=== PATIENT | male | born 1945 | race Caucasian/White ===

== ENCOUNTER 2017-04-26 08:23 | Day surgery (SDC) | payer MEDICARE, OTHER ==
[2017-04-25 08:51] VITALS: BMI 33.2
[~2017-04-26 08:23] MED LIST: LACTATED RINGERS 1,000 ML IV SCH; MOXIFLOXACIN HCL 0.5% DROPS 3 ML BTL OP ONE; ONDANSETRON 4 MG/2 ML VIAL IVP PRN; Pre Op ABX Message 1 EACH MISC MISCELLANE ONE; TETRACAINE 0.5% OPHTH (PF) DROPS 4 ML BTL OP ONE; TIMOLOL 0.5% OPHTH SOLN (PF) 0.2 ML DROPERETTE OP ONE
[2017-04-26] MEDS: PHENYLEPHRINE 2.5% OPHTH DRP 2ML OP NR ×3 (08:50→09:02)
[2017-04-26] MEDS: CYCLOPENTOLATE 1% OPHTH SOLN 2 ML BTL OP ONE ×3 (08:53→09:05)
[2017-04-26 09:13] LABS: Glucose,Whole Blood 178 mg/dL (75-99)
[2017-04-26 09:15] VITALS: TEMP 98.2
[2017-04-26] MEDS ORDERED: LIDOCAINE 1% 20 ML VIAL (10MG/ML) FOR IV START INTRADERMA ONE (09:20)
[2017-04-26] MEDS ORDERED: HYALURONATE SODIUM INTRAOCULAR 1 EACH SYRINGE (12MG/ML) INTRAOCULA ONE (09:38)
[2017-04-26] MEDS ORDERED: BALANCED SALT IRRIG SOLN COMB2 15 ML IRRIG.SOLN IRRIGATION ONE (09:38)
[2017-04-26] MEDS ORDERED: TIMOLOL 0.5% OPHTH SOLN (PF) 0.2 ML DROPERETTE LEFT EYE ONE (09:38)
[2017-04-26] MEDS ORDERED: MOXIFLOXACIN HCL 0.5% DROPS 3 ML BTL LEFT EYE ONE (09:39)
[2017-04-26] MEDS ORDERED: LIDOCAINE 1% (PF) 10MG/ML VIAL INTRAARTIC ONE (09:39)
[2017-04-26] MEDS ORDERED: MIDAZOLAM 2 MG/2 ML VIAL ONE (09:40)
[2017-04-26] MEDS ORDERED: EPINEPHrine (PF) 0.3 ML in BALANCED SALT IRRIG SOLN COMB2 500 ML IRRIGATION ONE (09:41)
--- NOTE | 2017-04-26 10:08 | P.OP ---
Date of Procedure: 04/26/17 Preoperative Diagnosis: NS & CS & PSC Postoperative Diagnosis: same w/ IFIS Procedure(s) Performed: PIOL OS, Malyugin ring insertion Implants: PCB00 21.00 Anesthesia: MAC Surgeon: Nima Reyez Estimated Blood Loss (ml): 0 Pathology: none sent Condition: stable Disposition: same day Indications for Procedure: blurry vision Operative Findings: no complications
[2017-04-26 10:33] VITALS: RESP 18
[2017-04-26 10:55] VITALS: BP 136/85; PULSE 65
--- NOTE | 2017-04-26 18:19 | OP ---
OPERATIVE REPORT DATE OF SURGERY: 26 April 2017. PROCEDURE: Phacoemulsification of cataract and intraocular lens implant of the left eye. PREOPERATIVE DIAGNOSES: Nuclear sclerosis, cortical sclerosis, posterior subcapsular cataract. POSTOPERATIVE DIAGNOSES: 1. Nuclear sclerosis. 2. Cortical sclerosis. 3. Posterior subcapsular cataract. 4. Intraoperative floppy iris. SURGEON: Dr. Nima Reyez. ANESTHESIA: Topical. ESTIMATED BLOOD LOSS: Is none. SPECIMEN: Taken none. NARRATIVE: After obtaining the appropriate consent, the patient was brought to the operating room. There he was placed under cardiac monitoring, prepped and draped in the usual sterile manner. He was approached from his left temporal side and at the 5 o'clock position a 1.1 mm stab blade was used to create a paracentesis port. Through this opening 1% Xylocaine MPF 50 50 mixed with balanced salt solution was injected into the anterior chamber. This was followed by stabilization of the anterior chamber with Amvisc. At the 3 o'clock position a 2.5 mm keratome was used to create a self-sealing corneal flap incision in Langerman's fashion. The patient's pupil was approximately only about 4.5 mm in diameter and the appearance of the tissue did not appear to be particularly firmly fixed within the eye. Therefore, a 7 mm Malyugin ring was placed and secured on the iris sphincter without difficulty. This was followed by beginning a continuous tear capsulorrhexis with a cystotome which was then completed using the Utrata forceps. Hydrodissection and hydrodelineation of the lens was accomplished with balanced salt solution. Phacoemulsification lens utilizing phaco chop was accomplished at 12.33 seconds at 10% power. Additional Xylocaine MPF was instilled into the anterior chamber. This was followed by removal of the remaining cortex under irrigation aspiration along with careful polishing of the posterior capsule in capsule vacuum mode. Additional Amvisc was then used to stabilize the capsular bag and an LOLA PCP 0 0 21.0 diopter posterior chamber intraocular lens was then injected into the capsular bag without difficulty. The 7 mm Malyugin ring was then disinserted from the iris sphincter and removed from the anterior chamber. Irrigation and aspiration on the viscoelastic within the anterior chamber and around the intra-ocular lens was accomplished without difficulty. The eye was then brought to normal intraocular pressure through the paracentesis port and the incisions were confirmed to be watertight. He then received 2 drops of 0.5% timolol followed by 2 drops of Vigamox was then lightly patched and shielded in the usual manner. There were no complications from the procedure. She tolerated the procedure well and returned to outpatient recovery in good condition. AFUA / LEROY: [id number] /
== END 2017-04-26 11:36 | disposition home or self-care (01) ==
LOC: OR 08:23
PROVIDERS: ATTEND Ophthalmology
DX: E11.36 Type 2 diabetes mellitus with diabetic cataract (principal); H25.12 Age-related nuclear cataract, left eye; H25.043 Posterior subcapsular polar age-related cataract, bilateral; H35.3132 Nonexudative age-related macular degeneration, bilateral, intermediate dry stage; H21.81 Floppy iris syndrome; H52.03 Hypermetropia, bilateral; H52.4 Presbyopia; I10 Essential (primary) hypertension; I48.91 Unspecified atrial fibrillation; Z79.01 Long term (current) use of anticoagulants; E07.9 Disorder of thyroid, unspecified; N40.0 Benign prostatic hyperplasia without lower urinary tract symptoms; Z79.84 Long term (current) use of oral hypoglycemic drugs; Z79.899 Other long term (current) drug therapy; Z88.1 Allergy status to other antibiotic agents; Z88.5 Allergy status to narcotic agent
CPT/HCPCS: 66984; C1780; J2250; J0171; J2001

== ENCOUNTER 2017-06-14 06:17 | Day surgery (SDC) | payer MEDICARE, OTHER ==
[~2017-06-14 06:17] MED LIST changes: -ONDANSETRON 4 MG/2 ML VIAL IVP PRN; -Pre Op ABX Message 1 EACH MISC MISCELLANE ONE; +TIMOLOL 0.5% OPHTH DROPS 5 ML BTL OP ONE; -TIMOLOL 0.5% OPHTH SOLN (PF) 0.2 ML DROPERETTE OP ONE
[2017-06-14 06:40] VITALS: RESP 16; TEMP 97.9
[2017-06-14] MEDS: CYCLOPENTOLATE 1% OPHTH SOLN 2 ML BTL OP ONE ×3 (06:47→07:01)
[2017-06-14] MEDS: PHENYLEPHRINE 2.5% OPHTH DRP 2ML OP NR ×3 (06:50→07:04)
[2017-06-14 06:56] LABS: Glucose,Whole Blood 151 mg/dL (75-99)
[2017-06-14] MEDS ORDERED: LIDOCAINE 1% INJ 10MG/ML (10 ML MDV) SQ ONE (07:17)
[2017-06-14] MEDS ORDERED: HYALURONATE SODIUM INTRAOCULAR 1 EACH SYRINGE (12MG/ML) INTRAOCULA ONE (07:19)
[2017-06-14] MEDS ORDERED: BALANCED SALT IRRIG SOLN COMB2 15 ML IRRIG.SOLN INTRAOCULA ONE (07:20)
[2017-06-14] MEDS ORDERED: LIDOCAINE 1% (PF) 10MG/ML VIAL SQ ONE (07:20)
[2017-06-14] MEDS ORDERED: fentaNYL (PF) 50 MCG/ML 2 ML AMP ONE (07:39)
[2017-06-14] MEDS ORDERED: MIDAZOLAM 2 MG/2 ML VIAL ONE (07:39)
[2017-06-14] MEDS ORDERED: EPINEPHrine (PF) 0.3 ML in BALANCED SALT IRRIG SOLN COMB2 500 ML IRRIGATION ONE (08:00)
--- NOTE | 2017-06-14 08:11 | P.OP ---
Date of Procedure: 06/14/17 Preoperative Diagnosis: NS & CS & PSC Postoperative Diagnosis: same Procedure(s) Performed: PIOL, OD Implants: PCB00 21.00 Anesthesia: MAC Surgeon: Nima Reyez Estimated Blood Loss (ml): 0 Pathology: none sent Condition: stable Disposition: same day Indications for Procedure: blurry vision Operative Findings: no complications
[2017-06-14 08:50] VITALS: BP 115/66; PULSE 57
--- NOTE | 2017-06-14 19:26 | OP ---
OPERATIVE REPORT DATE OF SURGERY: 06/14/2017 PROCEDURE: Phacoemulsification of cataract and intraocular lens implant of the right eye. PREOPERATIVE DIAGNOSIS: Nuclear sclerosis and cortical sclerosis. POSTOPERATIVE DIAGNOSIS: Subcapsular cataract. ESTIMATED BLOOD LOSS: Zero. SPECIMEN TAKEN: None. NARRATIVE: After obtaining the appropriate consent, the patient was brought to the Operating Room where the patient was placed under cardiac monitoring and prepped and draped in the usual sterile manner. At the 11 o'clock position a 15-degree super sharp blade was used to create a paracentesis followed by instillation of 1% Xylocaine MPF 50:50 mix with BSS into the anterior chamber. This was followed by to stabilize the anterior chamber. At the 9 o'clock position a self-sealing corneal flap incision was created using 2.8 mm isabel keratome. A cystotome was used to initiate a continuous tear capsulorrhexis which was completed with the Utrata forceps. A Binkhorst cannula was used to hydrodissect the lens nucleus followed by hydrodelineation. Phacoemulsification of the lens was performed utilizing phacochop in 14.02 seconds at 15% power. The remaining cortical material was removed using the irrigation aspiration mode followed by additional 1% Xylocaine MPF into the anterior chamber followed by viscoelastic Amvisc to stabilize the capsular bag. An LOLA PCB 00 21.0 diopters posterior chamber lens was placed into the capsular bag without difficulty. The remaining viscoelastic material was removed from the anterior chamber with the irrigation/aspiration. Balanced salt solution was used to normalize the intraocular pressure. The incision was checked for watertight integrity. The patient then received two drops of 0.5% timolol followed by two drops Vigamox, was lightly patched and shielded in the usual manner. There were no complications from the procedure. The patient tolerated the procedure well and was returned to recovery in good condition. MMODL / IJN: [id number] /
== END 2017-06-14 09:10 | disposition home or self-care (01) ==
LOC: OR 06:17
PROVIDERS: ATTEND Ophthalmology
DX: H25.041 Posterior subcapsular polar age-related cataract, right eye (principal); H35.3132 Nonexudative age-related macular degeneration, bilateral, intermediate dry stage; E11.319 Type 2 diabetes mellitus with unspecified diabetic retinopathy without macular edema; I12.9 Hypertensive chronic kidney disease with stage 1 through stage 4 chronic kidney disease, or unspecified chronic kidney disease; E11.22 Type 2 diabetes mellitus with diabetic chronic kidney disease; N18.9 Chronic kidney disease, unspecified; H52.03 Hypermetropia, bilateral; H52.4 Presbyopia; Z96.1 Presence of intraocular lens; I48.91 Unspecified atrial fibrillation; E07.9 Disorder of thyroid, unspecified; E78.5 Hyperlipidemia, unspecified; J30.2 Other seasonal allergic rhinitis; Z90.49 Acquired absence of other specified parts of digestive tract; Z90.79 Acquired absence of other genital organ(s); Z85.038 Personal history of other malignant neoplasm of large intestine; Z82.49 Family history of ischemic heart disease and other diseases of the circulatory system; Z79.01 Long term (current) use of anticoagulants; Z79.84 Long term (current) use of oral hypoglycemic drugs; Z79.890 Hormone replacement therapy; Z79.899 Other long term (current) drug therapy; Z88.1 Allergy status to other antibiotic agents; Z88.5 Allergy status to narcotic agent
CPT/HCPCS: 66984; C1780; J2250; J0171; J3010; J2001

== ENCOUNTER → 2018-09-11 | Outpatient (CLI) | payer MEDICARE, OTHER ==
--- NOTE | 2018-09-11 16:59 | US ---
EXAMINATION TYPE: US kidneys/renal and bladder DATE OF EXAM: 09/11/2018 COMPARISON: 12/09/2015 CLINICAL HISTORY: N18.2 Chronic kidney disease, stage 2 (mild). EXAM MEASUREMENTS: Right Kidney: 11.1 x 5.0 x 4.8 cm Left Kidney: 11.3 x 5.6 x 5.2 cm Right Kidney: No hydronephrosis or masses seen Left Kidney: probable stone again visualized 0.9 x 0.5 x 1.0cm, there is a new lower pole vascula r solid suspicious mass measuring 3.8 x 3.7 x 3.9 cm Bladder: wnl Bilateral Jets seen: Yes There is no evidence for hydronephrosis at this point in time. No right-sided nephrolithiasis is see n. Left renal calculus as described above. No right-sided masses are identified. Left renal mass as described above. The urinary bladder is anechoic. Bilateral ureteral jets are seen. IMPRESSION: 1. New left lower pole 3.7 cm renal mass that should be considered neoplasm until proven otherwise. T hree-phase abdominal CT is recommended for further evaluation. 2. Nonobstructing 1 cm left lower pole renal calculus. 3. Slightly lobulated Contour the kidneys is likely sequela of the patient's known medical renal dise ase. No cortical renal thinning or diminished cortical medullary differentiation. No hydronephrosis. A Yellow level critical message alert has been initiated for Veena Cordova MD via the [employer] Critical Results System on 09/11/2018 4:56 PM. This message alert has been sent to Veena Cordova MD via the preferences provided by the clinician for the receipt of Radiology Critical Findings. Message ID [id number].
== END ==
LOC: RADUSWWP 15:19
PROVIDERS: ATTEND Internal Medicine Nephrology
DX: N28.89 Other specified disorders of kidney and ureter (principal); N20.0 Calculus of kidney; N18.2 Chronic kidney disease, stage 2 (mild)
CPT/HCPCS: 76770

== ENCOUNTER → 2018-09-26 | Outpatient (CLI) | payer MEDICARE, OTHER ==
--- NOTE | 2018-09-26 16:34 | CT ---
EXAMINATION TYPE: CT chest abdomen wo con DATE OF EXAM: 09/26/2018 INDICATION: Neoplasm of kidney COMPARISON: 02/11/2012 CT DLP: 795.4 mGycm CONTRAST: Performed with Oral Contrast. No intravenous contrast. TECHNIQUE: Axial images at 5 mm thick sections. Reconstructed images in the coronal plane. Delayed images through the kidneys. FINDINGS: CT CHEST: Portion of the thyroid visualized is normal. There is a peripheral based anterior lingular nodule measuring 0.4 cm. Series 4 image 26. No enlarged mediastinal or hilar adenopathy is evident. The ascending aorta diameter at the level of the main pulmonary artery is 3.9 cm. The main pulmonary artery diameter at the bifurcation is 3.3 cm. Coronary artery calcifications present. CT ABDOMEN: Liver: Normal Spleen: Normal Pancreas: Atrophic Adrenal glands: The adrenal glands are normal. Gallbladder: Surgically absent Kidneys: No hydronephrosis is present. No cysts are present. There is a 0.7 cm inferior pole nono bstructing renal stone. There is a rounded density measuring 3.5 x 4.1 cm from the inferior lateral l eft kidney likely is a reported mass Aorta: Vascular calcification is within the aorta. No periaortic adenopathy is evident. No adenopath y at the level the renal arteries and veins is evident. Inferior vena cava: Normal. Small fat-containing hernia is in the left anterolateral pelvis with an opening of 1.2 cm. IMPRESSIONS: 1. Mass along the inferior lateral left kidney can be the patient's renal mass is currently measures 3.5 x 4.1 cm, similar to the ultrasound 09/11/2018. Neoplasm remains within the differential.
== END | disposition home or self-care (01) ==
LOC: RADCTMAIN 14:05
PROVIDERS: ATTEND Urology
DX: N28.89 Other specified disorders of kidney and ureter (principal); Z88.1 Allergy status to other antibiotic agents
CPT/HCPCS: 71250; 74150

== ENCOUNTER → 2019-03-04 | Outpatient (CLI) | payer MEDICARE, OTHER ==
--- NOTE | 2019-03-04 13:11 | CT ---
EXAMINATION TYPE: CT abdomen wo con DATE OF EXAM: 03/04/2019 COMPARISON: 09/26/2018 HISTORY: 73-year-old male with left Renal Cancer TECHNIQUE: Contiguous axial scanning of the abdomen without IV contrast. Coronal and sagittal reconst ructions performed. CT DLP: 673.3 mGycm Automated exposure control for dose reduction was used. FINDINGS: Heart normal size without pericardial effusion. Coronary vessel calcifications are present. Strandy a telectasis or scarring in the lower lungs without pleural effusion. Noncontrast appearance of the liver, gallbladder, spleen, and pancreas show no gross abnormality. Extrarenal pelvis on the right. There is mild left-sided hydronephrosis with moderate to severe surrounding inflammatory fat strandin g and intermediate density fluid tracking down the left pararenal space inferiorly to abut the anteri or margin of the left paraspinal and psoas major musculature. Some linear areas of density along the inferior aspect of the left kidney suggest a site of partial n ephrectomy. Small retroperitoneal lymph nodes in the left para-aortic distribution measuring up to 6 mm, likely r eactive. Otherwise, no mesenteric or retroperitoneal lymphadenopathy identified in the upper to mid a bdomen. The pelvis is not imaged on this exam. Moderate stool burden. No pericolonic inflammatory change. No dilated small bowel, free fluid, or free air seen. IMPRESSION: 1. MODERATE TO SEVERE INTERMEDIATE DENSITY FLUID AND FAT STRANDING IN THE LEFT PARARENAL SPACE EXTEND ING INFERIORLY AND POSTERIORLY TO THE ANTERIOR MARGIN OF THE LEFT PARASPINAL AND PSOAS MAJOR MUSCULAT URE. POSTSURGICAL INFLAMMATION AND HEMORRHAGE IS SUSPECTED. CORRELATE TO TIME SINCE SURGERY. 2. SOME SURGICAL MATERIAL ALONG THE INFERIOR ASPECT OF THE LEFT KIDNEY SUGGESTS SITE OF PARTIAL NEPHR ECTOMY. 3. MILD LEFT-SIDED HYDRONEPHROSIS.
== END | disposition home or self-care (01) ==
LOC: RADCTMAIN 09:35
PROVIDERS: ATTEND Urology
DX: N13.30 Unspecified hydronephrosis (principal); N28.89 Other specified disorders of kidney and ureter; C64.2 Malignant neoplasm of left kidney, except renal pelvis; Z88.1 Allergy status to other antibiotic agents; Z88.5 Allergy status to narcotic agent; Z88.8 Allergy status to other drugs, medicaments and biological substances
CPT/HCPCS: 74150

== ENCOUNTER → 2019-11-11 | Outpatient (CLI) | payer MEDICARE, OTHER ==
[2019-11-11 08:57] LABS: ALT 35 U/L (4-49); AST 35 U/L (17-59); African American GFR (CKD) >90 (>60 ml/min/1.73 sqM); Albumin 4.5 g/dL (3.5-5.0); Alkaline Phosphatase 71 U/L (38-126); Anion Gap 8 mmol/L; Blood Urea Nitrogen 26 mg/dL (9-20); Calcium 9.7 mg/dL (8.4-10.2); Carbon Dioxide 27 mmol/L (22-30); Chloride 105 mmol/L (98-107); Glucose 192 mg/dL (74-99); Non-African American GFR(CKD) 88 (>60 ml/min/1.73 sqM); Potassium 4.9 mmol/L (3.5-5.1); Sodium 140 mmol/L (137-145); Total Bilirubin 1.2 mg/dL (0.2-1.3); Total Protein 7.2 g/dL (6.3-8.2)
--- NOTE | 2019-11-11 09:09 | XR ---
EXAMINATION TYPE: XR chest 2V DATE OF EXAM: 11/11/2019 COMPARISON: Prior chest x-ray 05/09/2019 HISTORY: Renal cell carcinoma TECHNIQUE: Frontal and lateral views of the chest are obtained. FINDINGS: There is no focal air space opacity, pleural effusion, or pneumothorax seen. The cardiac silhouette size is within normal limits. The osseous structures are intact. Prominent lung volume m ay be indicative of underlying COPD. IMPRESSION: No acute cardiopulmonary process.
--- NOTE | 2019-11-11 10:49 | CT ---
EXAMINATION TYPE: CT abdomen w con DATE OF EXAM: 11/11/2019 COMPARISON: CT 03/04/2019, 09/26/2018 HISTORY: follow up renal cancer CT DLP: 925.8 mGycm Automated exposure control for dose reduction was used. TECHNIQUE: Helical acquisition of images was performed from the lung bases through the top of iliac crest to include entire abdomen. CONTRAST: Performed with Oral Contrast and with IV Contrast, patient injected with 100 mL of Isovue 300. FINDINGS: There is a mild coronary artery calcifications, small hiatal hernia present. LUNG BASES: Bandlike areas of increased attenuation along the fissures, lung bases likely reflect sca rring, there is no pleural or pericardial effusion. LIVER/GB: Patient is post cholecystectomy. Liver shows no mass. PANCREAS: No significant abnormality is seen. SPLEEN: No significant abnormality is seen. ADRENALS: Small left adrenal nodule on axial image 26 is stable, right adrenal gland is unremarkable. KIDNEYS: No significant interval change is seen. Small low dense focus at the lower pole the right ki dney measures approximately 8 mm and likely represents a cortical cyst, similar-appearing lesion pres ent in the midpole anterior aspect of the medial cortex. The lower pole the left kidney shows an irre gular appearance likely due to post partial nephrectomy change, there is been interval removal of the tumor at this level. There is likely some local scarring present. BOWEL: No significant abnormality is seen. LYMPH NODES: No significant abnormality is appreciated. OSSEOUS STRUCTURES: No significant abnormality is seen. FREE AIR: No Free Air visible ASCITES: None visible. RETROPERITONEAL ADENOPATHY: No Retroperitoneal Adenopathy visible. OTHER: IMPRESSION: STABLE POSTOP CHANGES.
== END | disposition home or self-care (01) ==
LOC: RADCTMAIN 08:13
PROVIDERS: ATTEND Urology
DX: Z98.890 Other specified postprocedural states (principal); C64.9 Malignant neoplasm of unspecified kidney, except renal pelvis; C64.2 Malignant neoplasm of left kidney, except renal pelvis; Z88.6 Allergy status to analgesic agent; Z88.1 Allergy status to other antibiotic agents
CPT/HCPCS: 80053; 71046; 74160; 36415; Q9967

== ENCOUNTER → 2020-05-06 | Outpatient (CLI) | payer MEDICARE, OTHER ==
--- NOTE | 2020-05-06 11:38 | XR ---
EXAMINATION TYPE: XR chest 2V DATE OF EXAM: 05/06/2020 COMPARISON: 11/11/2019 INDICATION: Renal cancer TECHNIQUE: Frontal and lateral views of the chest are obtained. FINDINGS: The heart size is normal. The pulmonary vasculature is normal. There is some mild nonspecific infiltrate at the bilateral lung bases. Correlate for subsegmental ate lectasis. Atypical pneumonia could be considered. Suspicious abnormality to suggest metastatic diseas e is not identified. No expansile lesions within the osseous structures is identified.. IMPRESSION: 1. Suggestion of mild subsegmental atelectasis. Consider atypical pneumonia within the differential. 2. No suspicious metastatic disease
[2020-05-06 20:26] LABS: African American GFR (CKD) 75.7 (60.0-200.0); Albumin 4.4 g/dL (3.80-4.90); Albumin/Globulin Ratio 2.44 (1.60-3.17); Anion Gap 7.1 mmol/L (4.00-12.00); BUN/Creat Ratio 30.91 Ratio (12.00-20.00); Calcium 9.5 mg/dL (8.7-10.3); Carbon Dioxide 29.9 mmol/L (21.6-31.8); Globulin 1.8 g/dL (1.6-3.3); Non-African American GFR(CKD) 65.3 (60.0-200.0); Potassium 4.8 mmol/L (3.5-5.5); Total Bilirubin 0.7 mg/dL (0.3-1.2); Total Protein 6.2 g/dL (6.2-8.2)
== END | disposition home or self-care (01) ==
LOC: LABWHC1 10:56
PROVIDERS: ATTEND Urology
DX: C64.2 Malignant neoplasm of left kidney, except renal pelvis (principal)
CPT/HCPCS: 36415; 71046; 80053

== ENCOUNTER → 2020-12-17 | Outpatient (CLI) | payer MEDICARE, OTHER ==
--- NOTE | 2020-12-17 11:06 | XR ---
EXAMINATION TYPE: XR chest 2V DATE OF EXAM: 12/17/2020 COMPARISON: 05/06/2020 HISTORY: Shortness of breath TECHNIQUE: Frontal and lateral views of the chest are obtained. FINDINGS: Scattered senescent parenchymal changes noted. Hyperinflation compatible with COPD. No evidence for infiltrate. No evidence for atelectasis. Heart size is stable. Mediastinal structures are stable and grossly unremarkable. No evidence for hilar prominence. Degenerative changes dorsal spine. IMPRESSION: 1. No evidence for acute pulmonary disease.
--- NOTE | 2020-12-17 12:01 | CT ---
EXAMINATION TYPE: CT abdomen w con DATE OF EXAM: 12/17/2020 COMPARISON: 11/11/2019 HISTORY: follow up renal cancer CT DLP: 1399 mGycm CONTRAST: CT scan of the abdomen is performed with Oral Contrast and with IV Contrast, patient injected with 85 mL of Isovue 300. FINDINGS: LUNG BASES-: No visible nodule. No infiltrate. LIVER/GB: The gallbladder surgically absent. No space occupying hepatic lesion. Biliary tree is of normal caliber. PANCREAS: No inflammation. No distinct mass. SPLEEN: No splenic enlargement. No lesion seen. ADRENALS: No nodule. No thickening. KIDNEYS/BLADDER: No hydronephrosis. No nephrolithiasis. Post Surgical changes noted of the left ki dney at its lower pole. No evidence for recurrent or residual mass lesion. Urinary bladder grossly u nremarkable. BOWEL: Normal appendix. Normal bowel caliber. No inflammation. LYMPH NODES: No greater than 1cm abdominal or pelvic lymph nodes are appreciated. AORTA: No significant abnormality. OSSEOUS STRUCTURES: No significant abnormality is seen. OTHER: No significant additional abnormality is seen. IMPRESSION: 1. Post Surgical changes noted of the left kidney at its lower pole. No evidence for recurrent or res idual mass lesion. No evidence for metastatic disease.
== END | disposition home or self-care (01) ==
LOC: RADCTMAIN 10:25
PROVIDERS: ATTEND Urology
DX: C64.2 Malignant neoplasm of left kidney, except renal pelvis (principal)
CPT/HCPCS: 82565; 84520; 71046; 74160; 36415; Q9967

== ENCOUNTER → 2021-01-19 | Outpatient (CLI) | payer MEDICARE, OTHER ==
--- NOTE | 2021-01-20 07:31 | XR ---
EXAMINATION TYPE: XR chest 2V DATE OF EXAM: 01/19/2021 COMPARISON: Chest x-ray and CT abdomen December 17, 2020. HISTORY: Left lower lobe pneumonia, abnormal x-ray. TECHNIQUE: Frontal and lateral views of the chest are obtained. FINDINGS: There is posterior left lower lobe airspace opacity new from most recent studies. Right l rand is clear. There is partial silhouetting of the posterior aspect left hemidiaphragm on lateral vie w. The cardiac silhouette size is stable and upper limits of normal. Slight underlying scoliotic curv ature redemonstrated. IMPRESSION: Posterior left lower lobe acute infiltrate and/or atelectasis.
== END | disposition home or self-care (01) ==
LOC: RADXRMAIN 17:08
PROVIDERS: ATTEND Internal Medicine
DX: R91.8 Other nonspecific abnormal finding of lung field (principal); J18.9 Pneumonia, unspecified organism; J11.1 Influenza due to unidentified influenza virus with other respiratory manifestations
CPT/HCPCS: 71046

== ENCOUNTER 2021-04-19 17:38 | Emergency (ER) | payer MEDICARE, OTHER ==
[2021-04-19] MEDS ORDERED: SODIUM CHLORIDE 0.9% 50 ML IVPB ONE (22:45)
[2021-04-19] MEDS ORDERED: BAMLANIVIMAB (EUA) 700 MG, ETESEVIMAB (EUA) 1,400 MG in SODIUM CHLORIDE 0.9% 50 ML IVPB ONE (23:00)
[2021-04-19 23:05] VITALS: RESP 18
[2021-04-20 00:26] VITALS: PULSE 61
[2021-04-20] MEDS ORDERED: hydrALAZINE HCL 25 MG TAB PO STA (00:47)
[2021-04-20] MEDS ORDERED: APIXABAN 5 MG TAB PO STA (00:47)
--- NOTE | 2021-04-20 00:48 | ED ---
URI HPI - General Chief Complaint: Upper Respiratory Infection Stated Complaint: covid+, wants infusion Time Seen by Provider: 04/19/21 21:43 Source: patient Mode of arrival: ambulatory Limitations: no limitations - History of Present Illness Initial Comments: 75 year-old male patient presents requesting monoclonal antibody infusion. States that he has been having fevers since Monday. Reports body aches and mild weakness today. Reports mild intermittent cough. Denies any shortness of breath. Denies vomiting or diarrhea. He did have the vaccine. Patient denies any recent rash, chest pain, abdominal pain, constipation, back pain, numbness, tingling, dizziness, hematuria, dysuria, urinary urgency, urinary frequency, headache, visual changes, or any other complaints. - Related Data Home Medications Medication Instructions Recorded Confirmed Atorvastatin [Lipitor] 10 mg PO TUTHSA 07/02/15 06/14/17 Cinnamon Bark [Cinnamon] 500 mg PO BID 07/02/15 06/08/17 Fish Oil/Dha/Epa [Fish Oil 1,200 1 cap PO BID 07/02/15 06/08/17 mg Fish Oil] Garlic 1 tab PO DAILY 07/02/15 06/08/17 Multivitamins, Thera [Multivitamin] 1 tab PO DAILY 07/02/15 06/08/17 Psyllium Husk 100% [Metamucil] 6 gm PO DAILY 07/02/15 06/08/17 Vit C/E/Zn/Coppr/Lutein/Zeaxan 1 cap PO BID 07/02/15 06/08/17 [Preservision Areds 2 Softgel] atenoloL [Tenormin] 50 mg PO BID 07/02/15 06/14/17 hydrALAZINE HCL [Apresoline] 25 mg PO BID 07/02/15 06/14/17 Warfarin [Coumadin] 5 mg PO SUTUTHSA 09/08/15 06/08/17 glipiZIDE [Glucotrol] 10 mg PO TID-W/MEALS 09/08/15 06/14/17 Cholecalciferol [Vitamin D3] 5,000 unit PO MOWEFR 04/25/17 06/08/17 Levothyroxine Sodium [Synthroid] 112 mcg PO HS 04/25/17 06/14/17 Melatonin 10 mg PO HS 04/25/17 06/14/17 Bromfenac Sodium [Prolensa Ophth 1 drop OPHTHALMIC DIRECTED 06/08/17 06/14/17 Soln] Ferrous Sulfate [Feosol] 325 mg PO DAILY 06/08/17 06/14/17 Folic Acid 1 mg PO DAILY 06/08/17 06/14/17 Moxifloxacin HCl [Moxifloxacin 1 drop OPHTHALMIC DIRECTED 06/08/17 06/14/17 0.5%] Warfarin [Coumadin] 10 mg PO MOWEFR 06/08/17 06/08/17 glyBURIDE/METFORMIN HCL 1 tab PO QAM 06/08/17 06/14/17 [Glucovance 2.5-500 mg] prednisoLONE ACETATE 1% OPHTH 1 drop OPHTHALMIC DIRECTED 06/08/17 06/14/17 [Pred Forte 1%] Allergies Allergy/AdvReac Type Severity Reaction Status Date / Time ciprofloxacin [From Cipro] Allergy affected Verified 04/19/21 19:36 achilles tendon lisinopril Allergy Unknown Verified 04/19/21 19:37 losartan Allergy Unknown Verified 04/19/21 19:37 codeine AdvReac stomach Verified 04/19/21 19:36 upset Review of Systems ROS Statement: Those systems with pertinent positive or pertinent negative responses have been documented in the HPI. ROS Other: All systems not noted in ROS Statement are negative. 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 Colitis, colon /rectal cancer, heart murmur as child, kidney stone. Colon polyps History of Any Multi-Drug Resistant Organisms: None Reported Past Surgical History: Bowel Resection, Cholecystectomy, Tonsillectomy Additional Past Surgical History / Comment(s): 04/16: LEFT CATARACT/LENS IMPLANT. Several colonscopy/polypectomy,colon resection with colostomy and a r eversal, nasal sx(hx broken nose), TURP Past Anesthesia/Blood Transfusion Reactions: No Reported Reaction Past Psychological History: No Psychological Hx Reported Smoking Status: Never smoker Past Alcohol Use History: Rare Past Drug Use History: None Reported - Past Family History Father Family Medical History: Myocardial Infarction (ME) Additional Family Medical History / Comment(s): age 66 from [place],- dads dad [place] age 68 Mother Family Medical History: Myocardial Infarction ([place]) Additional Family Medical History / Comment(s): age 69 from [place]. moms father from [place] between age 55-60 General Exam Limitations: no limitations General appearance: alert, in no apparent distress, other (This is a well- developed, well-nourished adult male patient in no acute distress.) Respiratory exam: Present: normal lung sounds bilaterally. Absent: respiratory distress, wheezes, rales, rhonchi, stridor Cardiovascular Exam: Present: regular rate, normal rhythm, normal heart sounds. Absent: systolic murmur, diastolic murmur, rubs, gallop, clicks GI/Abdominal exam: Present: soft, normal bowel sounds. Absent: distended, tenderness, guarding, rebound, rigid Neurological exam: Present: alert, oriented X3, CN II-XII intact Psychiatric exam: Present: normal affect, normal mood Skin exam: Present: warm, dry, intact, normal color. Absent: rash Course Vital Signs 04/19/21 04/19/21 04/19/21 19:38 23:03 23:32 Temperature 99.3 F 98.3 F 98.4 F Pulse Rate 67 67 64 Respiratory 20 18 18 Rate Blood Pressure 170/90 153/75 164/74 O2 Sat by Pulse 96 95 96 Oximetry 04/20/21 04/20/21 00:06 01:22 Temperature 98.4 F 98.2 F Pulse Rate 61 61 Respiratory 18 18 Rate Blood Pressure 135/66 163/71 O2 Sat by Pulse 94 L 96 Oximetry Medical Decision Making - Medical Decision Making 75-year-old male patient presented to the emergency department for fevers, cough, upper respiratory symptoms. Is requesting monoclonal antibodies. Physical examination is unremarkable. Lungs are clear to auscultation. Vital signs are within normal range except for mildly low 02 saturation. He did receive the monoclonal antibody infusion without difficulty. He will be discharged to follow-up with his primary care physician for recheck in 1-2 days. Return parameters were discussed in detail. He verbalizes understanding and agrees with this plan. My attending is Dr. Fisher. Disposition Clinical Impression: COVID-19 Disposition: HOME SELF-CARE Condition: Good Instructions (If sedation given, give patient instructions): Coronavirus Disease 2019 (COVID-19) Additional Instructions: Tips to help you feel better: -Maintain adequate fluid intake - especially water. -Rest, you are healing your body will require extra sleep. -Eat even if you do not feel like it - broth, jello, toast are fine if you cannot eat full meals. -Take tylenol and motrin alternating (if you have no allergies or have not been instructed to avoid these medications) to help with body aches and fevers. -Obtain over the counter vitamin C, zinc, and vitamin D3. -Take medications as prescribed. Follow-up with your primary care physician for recheck in 1-2 days. Return for any new, worsening, or concerning symptoms. Is patient prescribed a controlled substance at d/c from ED?: No Referrals: Ryan Lewis MD [Primary Care Provider] - 1-2 days
[2021-04-20 01:29] VITALS: BP 163/71; TEMP 98.2
== END 2021-04-20 01:29 | disposition home or self-care (01) ==
LOC: EC 17:38
DX: U07.1 COVID-19 (principal); I10 Essential (primary) hypertension; E11.9 Type 2 diabetes mellitus without complications; E78.5 Hyperlipidemia, unspecified; I48.91 Unspecified atrial fibrillation; E07.9 Disorder of thyroid, unspecified; Z88.1 Allergy status to other antibiotic agents; Z88.8 Allergy status to other drugs, medicaments and biological substances; Z88.5 Allergy status to narcotic agent; Z79.899 Other long term (current) drug therapy; Z79.890 Hormone replacement therapy; Z79.01 Long term (current) use of anticoagulants; Z79.84 Long term (current) use of oral hypoglycemic drugs
CPT/HCPCS: 99283; J3490

== ENCOUNTER → 2021-11-25 | Outpatient (CLI) | payer MEDICARE, OTHER ==
--- NOTE | 2021-11-25 10:48 | XR ---
EXAMINATION TYPE: XR chest 2V DATE OF EXAM: 11/25/2021 COMPARISON: 01/19/2021 INDICATION: Left renal cancer TECHNIQUE: Frontal and lateral views of the chest are obtained. FINDINGS: The heart size is normal. The pulmonary vasculature is normal. The lungs are clear. Osseous structures are unremarkable. No expansile lesions are evident. IMPRESSION: 1. No acute pulmonary process.
== END | disposition home or self-care (01) ==
LOC: RADXRMAIN 10:11
PROVIDERS: ATTEND Urology
DX: C64.2 Malignant neoplasm of left kidney, except renal pelvis (principal)
CPT/HCPCS: 71046

== ENCOUNTER → 2022-11-23 | Outpatient (CLI) | payer MEDICARE, OTHER ==
--- NOTE | 2022-11-23 14:29 | XR ---
EXAMINATION TYPE: XR KUB DATE OF EXAM: 11/23/2022 2:23 PM INDICATION: Patient age:Male; 77 years old; Reason for study: C64.2 MALIGNANT NEOPLASM OF LEFT KIDNEY, EXCEPT RE; PHH. COMPARISON: 02/09/2012 TECHNIQUE: One radiographic view of the abdomen was obtained. FINDINGS: The bowel gas pattern is nonspecific without dilated loops of small or large bowel. There i s no evidence for organomegaly or pneumoperitoneum. The osseous structures are intact. No abnormal calcifications are present. Fecal material and gas are demonstrated throughout the colon and rectum. Right upper quadrant course second). Vascular calcifications of the splenic artery. Dislocations pro ject over the pelvis likely phleboliths. IMPRESSION: Nonspecific bowel gas pattern without radiographic evidence for acute process.
== END | disposition home or self-care (01) ==
LOC: RADXRMAIN 14:06
PROVIDERS: ATTEND Urology
DX: C64.2 Malignant neoplasm of left kidney, except renal pelvis (principal)
CPT/HCPCS: 74018

== ENCOUNTER → 2022-11-24 | Outpatient (CLI) | payer MEDICARE, OTHER ==
--- NOTE | 2022-11-24 16:39 | XR ---
EXAMINATION TYPE: XR chest 2V DATE OF EXAM: 11/24/2022 10:06 AM COMPARISON: Chest radiographs from 11/25/2021. TECHNIQUE: XR chest 2V Frontal and lateral views of the chest. CLINICAL INDICATION:Male, 77 years old with history of C64.2 Malig neoplasm left kidney except renal pelv; FINDINGS: Lungs/Pleura: There is no evidence of pleural effusion, focal consolidation, or pneumothorax. Pulmonary vascularity: Unremarkable. Heart/mediastinum: Cardiomediastinal silhouette is unremarkable. Musculoskeletal: No acute osseous pathology. IMPRESSION: No acute cardiopulmonary disease/process.
== END | disposition home or self-care (01) ==
LOC: RADXRMAIN 09:46
PROVIDERS: ATTEND Urology
DX: C64.2 Malignant neoplasm of left kidney, except renal pelvis (principal)
CPT/HCPCS: 71046

== ENCOUNTER 2023-07-19 20:37 | Emergency (ER) | payer MEDICARE, OTHER ==
[2023-07-19 21:12] VITALS: RESP 16; TEMP 98.6
[2023-07-19] MEDS: SODIUM CHLORIDE 0.9% 500 ML 500 ML IV STA (21:41)
[2023-07-19 21:47] LABS: Basophils % (A) 0 %; Eosinophils # (A) 0.2 k/uL (0-0.7); Eosinophils % (A) 2 %; HCT 46.9 % (39.0-53.0); HGB 16.1 gm/dL (13.0-17.5); Lymphocytes # (A) 1.7 k/uL (1.0-4.8); Lymphocytes % (A) 22 %; MCHC 34.3 g/dL (31.0-37.0); MCV 96.3 fL (80.0-100.0); Mean Platelet Volume 8.4; Monocytes # (A) 0.5 k/uL (0-1.0); Monocytes % (A) 7 %; Neutrophils % (A) 66 %; Platelet Count 243 k/uL (150-450); RBC 4.87 m/uL (4.30-5.90); WBC 7.6 k/uL (3.8-10.6)
--- NOTE | 2023-07-19 22:03 | ED ---
Dizziness HPI - General Chief Complaint: Dizziness Stated Complaint: Elevated BP Time Seen by Provider: 07/19/23 21:11 Source: patient Mode of arrival: ambulatory Limitations: no limitations - History of Present Illness Initial Comments: 77-year-old male presenting with chief complaint of elevated blood pressure. Patient states that he woke up around 8 AM today and felt quite dizzy when he transferred from sitting to standing. He took his blood pressure and noted that it was in the 180 systolic range. Throughout the day he noticed his blood pressure was steadily coming back down and reached the 130s systolic. However in the evening he checked his blood pressure again and it was back up to 180. He has felt a little lightheaded intermittently throughout the day but has had no further dizzy spells. No chest pain or difficulty breathing. No syncope. No abdominal pain, nausea, vomiting. No fever, chills, cough, congestion, sore throat. - Related Data Home Medications Medication Instructions Recorded Confirmed Atorvastatin [Lipitor] 80 mg PO HS 07/02/15 03/14/23 Cinnamon Bark [Cinnamon] 1,000 mg PO BID 07/02/15 03/14/23 Multivitamins, Thera [Multivitamin] 1 tab PO DAILY 07/02/15 03/14/23 Psyllium Husk 100% [Metamucil] 6 gm PO DAILY 07/02/15 03/14/23 Vit C/E/Zn/Coppr/Lutein/Zeaxan 1 cap PO BID 07/02/15 03/14/23 [Preservision Areds 2 Softgel] atenoloL [Tenormin] 50 mg PO DAILY 07/02/15 03/14/23 hydrALAZINE HCL [Apresoline] 25 mg PO BID 07/02/15 03/14/23 glipiZIDE [Glucotrol] 5 mg PO TID-W/MEALS 09/08/15 03/14/23 Cholecalciferol [Vitamin D3] 5,000 unit PO MOWEFR 04/25/17 03/14/23 Levothyroxine Sodium [Synthroid] 112 mcg PO HS 04/25/17 03/14/23 Melatonin [Melatonin ER] 5 mg PO HS 04/25/17 03/14/23 Apixaban [Eliquis] 5 mg PO BID 03/14/23 Aspirin 81 mg PO DAILY 03/14/23 Carboxymethylcellulose Sodium 1 drop BOTH EYES DIRECTED PRN 03/14/23 [Refresh Tears] Dronedarone [Multaq] 400 mg PO AC-BID 03/14/23 Empagliflozin [Jardiance] 25 mg PO HS 03/14/23 L.acidoph,Paracasei, B.lactis 1 each PO DAILY 03/14/23 [Probiotic] Magnesium 400 mg PO MOWEFR 03/14/23 Pioglitazone [Actos] 30 mg PO DAILY 03/14/23 Wheat Dextrin [Benefiber] 1 packet PO QAM 03/14/23 allopurinoL [Zyloprim] 100 mg PO DAILY 03/14/23 metFORMIN HCL ER [Glucophage XR] 500 mg PO TID 03/14/23 Allergies Allergy/AdvReac Type Severity Reaction Status Date / Time ciprofloxacin [From Cipro] Allergy affected Verified 07/19/23 20:40 achilles tendon lisinopril Allergy Swelling Verified 07/19/23 20:40 losartan Allergy Unknown Verified 07/19/23 20:40 codeine AdvReac stomach Verified 07/19/23 20:40 upset Review of Systems ROS Statement: Those systems with pertinent positive or pertinent negative responses have been documented in the HPI. ROS Other: All systems not noted in ROS Statement are negative. Past Medical History Past Medical History: Atrial Fibrillation, Cancer, Diabetes Mellitus, GI Bleed, Hyperlipidemia, Hypertension, Myocardial Infarction ([place]), Prostate Disorder, Thyroid Disorder Additional Past Medical History / Comment(s): hx. RIGHT SIDE OF NOSE (BASAL CELL), Colitis, colon /rectal cancer, heart murmur as child, kidney stone. Colon polyps, hx. kidney cancer 2019-had surg.-while in the hospital recovering-had [place] Last Myocardial Infarction Date:: 2019 History of Any Multi-Drug Resistant Organisms: None Reported Past Surgical History: Bowel Resection, Cholecystectomy, Heart Catheterization With Stent, Tonsillectomy Additional Past Surgical History / Comment(s): lisa cataracts removed, Several colonscopies, colon resection with colostomy and a reversal, nasal sx(hx broken nose), TURP, partial left nephrectomy 2019 Past Anesthesia/Blood Transfusion Reactions: No Reported Reaction Additional Past Anesthesia/Blood Transfusion Reaction / Comment(s): no hx. of transfusion reaction Date of Last Stent Placement:: 2019 Past Psychological History: No Psychological Hx Reported Smoking Status: Never smoker Past Alcohol Use History: Rare Past Drug Use History: None Reported - Past Family History Father Family Medical History: Myocardial Infarction ([place]) Additional Family Medical History / Comment(s): age 66 from [place] dads dad [place] age 68 Mother Family Medical History: Myocardial Infarction ([place]) Additional Family Medical History / Comment(s): age 69 from [place]. moms father from [place] between age 55-60 General Exam Limitations: no limitations General appearance: alert, in no apparent distress Head exam: Present: atraumatic, normocephalic Eye exam: Present: normal appearance, PERRL, EOMI Pupils: Present: normal accommodation Neck exam: Present: normal inspection Respiratory exam: Present: normal lung sounds bilaterally. Absent: respiratory distress, wheezes, rales, rhonchi, stridor Cardiovascular Exam: Present: regular rate, normal rhythm, normal heart sounds. Absent: systolic murmur, diastolic murmur, rubs, gallop, clicks Extremities exam: Present: normal inspection. Absent: pedal edema Neurological exam: Present: alert, oriented X3 Expanded Patient oriented to: Present: person, place, time Speech: Present: fluid speech Cranial nerves: EOM's Intact: Normal, Tongue Deviation: Normal Cerebellar function: Finger to Nose: Normal, Heel to [place]: Normal Motor strength exam: RUE: 5, LUE: 5, RLE: 5, LLE: 5 Eye Response: (4) open spontaneously Motor Response: (6) obeys commands Verbal Response: (5) oriented Pati Total: 15 Psychiatric exam: Present: normal affect, normal mood Skin exam: Present: warm, dry Course Vital Signs 07/19/23 07/19/23 07/19/23 20:38 21:18 22:49 Temperature 98.6 F Pulse Rate 68 65 64 Respiratory 16 16 16 Rate Blood Pressure 204/84 143/74 161/76 O2 Sat by Pulse 98 99 98 Oximetry Medical Decision Making - Medical Decision Making EKG shows sinus rhythm. Ventricular rate 64. WA interval 200. QRS 125. QT 425. QTc 435. Right bundle block. Was pt. sent in by a medical professional or institution (, PA, HEEL FINISHER, urgent care, hospital, or fpc...) When possible be specific @ -No Did you speak to anyone other than the patient for history (EMS, parent, family, police, friend...)? What history was obtained from this source @ -No Did you review nursing and triage notes (agree or disagree)? Why? @ -I reviewed and agree with nursing and triage notes Were old charts reviewed (outside hosp., previous admission, EMS record, old EKG, old radiological studies, urgent care reports/EKG's, fpc records)? Report findings @ -No old charts were reviewed Differential Diagnosis (chest pain, altered mental status, abdominal pain women, abdominal pain men, vaginal bleeding, weakness, fever, dyspnea, syncope, headache, dizziness, GI bleed, back pain, seizure, CVA, palpatations, mental health, musculoskeletal)? @ -MDM Differential Dizziness: Benign paroxysmal positional Vertigo, Menieres disease, otitis media, acoustic neuroma, vertebrobasilar insufficiency, cerebellar stroke, encephalitis, hypovolemic, arrhythmia, coronary artery syndrome, anemia this is not meant to be an all-inclusive list EKG interpreted by me (3pts min.). @ -As above X-rays interpreted by me (1pt min.). @ -Chest x-ray shows no acute cardiopulmonary disease process. COPD changes. CT interpreted by me (1pt min.). @ -None done U/S interpreted by me (1pt. min.). @ -None done What testing was considered but not performed or refused? (CT, X-rays, U/S, labs)? Why? @ -None What meds were considered but not given or refused? Why? @ -None Did you discuss the management of the patient with other professionals (professionals i.e. , PA, HEEL FINISHER, lab, RT, psych nurse, social media content specialist, film loader, teacher, business practices officer, nurse case management)? Give summary @ -No Was smoking cessation discussed for >3mins.? @ -No Was critical care preformed (if so, how long)? @ -No Were there social determinants of health that impacted care today? How? (Homelessness, low income, unemployed, alcoholism, drug addiction, transportation, low edu. Level, literacy, decrease access to med. care, shelter, rehab)? @ -No Was there de-escalation of care discussed even if they declined (Discuss DNR or withdrawal of care, Hospice)? DNR status @ -No What co-morbidities impacted this encounter? (DM, HTN, Smoking, COPD, CAD, Cancer, CVA, ARF, Chemo, Hep., AIDS, mental health diagnosis, sleep apnea, morbid obesity)? @ -None Was patient admitted / discharged? Hospital course, mention meds given and route, prescriptions, significant lab abnormalities, going to OR and other pertinent info. @ -77-year-old male presenting with chief complaint of elevated blood pressure. Patient had a single episode of dizziness this morning when transferring from sitting to standing that prompted him to check his blood pressure, he noticed it was in the 180s systolic. Throughout the day patient had no symptoms and blood pressure progressively decreased to 130 systolic. States that he checked it more time in the evening and it was elevated back up to the 180s. Patient has no other symptoms at this time. No chest pain, difficulty breathing, nausea, vomiting, fever, chills, cough, congestion, sore throat, abdominal pain, headache, neck pain, vision or hearing changes, numbness, tingling, weakness. History and physical exam are conducted. Lab work shows transaminitis. BUN 29, likely due to dehydration. Glucose is 115. Otherwise unremarkable. Urine shows no infectious process. Negative for influenza, RSV, and COVID. Chest x- ray shows no acute process. EKG shows sinus rhythm. Patient has remained asymptomatic throughout his course here in the ER. His initial blood pressure was 204/84, shortly after patient was brought to a room and had taken no medications his blood pressure was 143/74, initial reading was likely falsely elevated. Patient does not normally take his blood pressure every day. Given that he has been asymptomatic, he is encouraged to keep a blood pressure journal at home and follow-up with his PCP. Discharged home. Follow-up with PCP. Report back to ER with any new or worsening symptoms. Discussed return parameters and answered all questions. Patient conveyed verbal understanding and agreed to the plan. I discussed this case in detail with my attending Dr. Vance Undiagnosed new problem with uncertain prognosis? @ -No Drug Therapy requiring intensive monitoring for toxicity (Heparin, Nitro, Insulin, Cardizem)? @ -No Were any procedures done? @ -No Diagnosis/symptom? @ -Hypertension Acute, or Chronic, or Acute on Chronic? @ -Acute on chronic Uncomplicated (without systemic symptoms) or Complicated (systemic symptoms)? @ -Uncomplicated Side effects of treatment? @ -No Exacerbation, Progression, or Severe Exacerbation? @ -No Poses a threat to life or bodily function? How? (Chest pain, [place], [place], pneumonia, PE, COPD, DKA, ARF, appy, cholecystitis, CVA, Diverticulitis, Homicidal, Suicidal, threat to staff... and all critical care pts) @ -Low likelihood at this time, uncontrolled chronic hypertension does result in damage over time - Lab Data Result diagrams: 07/19/23 21:30 07/19/23 21:30 Lab Results 07/19/23 07/19/23 07/19/23 Range/Units 21:30 21:30 21:30 WBC 7.6 (3.8-10.6) k/uL RBC 4.87 (4.30-5.90) m/uL Hgb 16.1 (13.0-17.5) gm/dL Hct 46.9 (39.0-53.0) % MCV 96.3 (80.0-100.0) fL MCH 33.0 (25.0-35.0) pg MCHC 34.3 (31.0-37.0) g/dL RDW 13.0 (11.5-15.5) % Plt Count 243 (150-450) k/uL MPV 8.4 Neutrophils % 66 % Lymphocytes % 22 % Monocytes % 7 % Eosinophils % 2 % Basophils % 0 % Neutrophils # 5.0 (1.3-7.7) k/uL Lymphocytes # 1.7 (1.0-4.8) k/uL Monocytes # 0.5 (0-1.0) k/uL Eosinophils # 0.2 (0-0.7) k/uL Basophils # 0.0 (0-0.2) k/uL Sodium 138 (137-145) mmol/L Potassium 4.4 (3.5-5.1) mmol/L Chloride 102 (98-107) mmol/L Carbon Dioxide 22 (22-30) mmol/L Anion Gap 14 mmol/L BUN 29 H (9-20) mg/dL Creatinine 0.86 (0.66-1.25) mg/dL Est GFR (CKD-EPI)AfAm >90 (>60 ml/min/1.73 sqM) Est GFR (CKD-EPI)NonAf 83 (>60 ml/min/1.73 sqM) Glucose 115 H (74-99) mg/dL Plasma Lactic Acid Berry 1.9 (0.7-2.0) mmol/L Calcium 9.8 (8.4-10.2) mg/dL Total Bilirubin 0.8 (0.2-1.3) mg/dL AST 116 H (17-59) U/L ALT 214 H (4-49) U/L Alkaline Phosphatase 95 (38-126) U/L Troponin I (0.000-0.034) ng/mL Total Protein 7.8 (6.3-8.2) g/dL Albumin 5.0 (3.5-5.0) g/dL Urine Color Urine Appearance (Clear) Urine pH (5.0-8.0) Ur Specific [place] (1.001-1.035) Urine Protein (Negative) Urine Glucose (UA) (Negative) Urine Ketones (Negative) Urine Blood (Negative) Urine Nitrite (Negative) Urine Bilirubin (Negative) Urine Urobilinogen (<2.0) mg/dL Ur Leukocyte Esterase (Negative) Urine RBC (0-5) /hpf Influenza Type A (PCR) (Not Detectd) Influenza Type B (PCR) (Not Detectd) RSV (PCR) (Not Detectd) SARS-CoV-2 (PCR) (Not Detectd) 07/19/23 07/19/23 07/19/23 Range/Units 21:30 21:31 21:31 WBC (3.8-10.6) k/uL RBC (4.30-5.90) m/uL Hgb (13.0-17.5) gm/dL Hct (39.0-53.0) % MCV (80.0-100.0) fL MCH (25.0-35.0) pg MCHC (31.0-37.0) g/dL RDW (11.5-15.5) % Plt Count (150-450) k/uL MPV Neutrophils % % Lymphocytes % % Monocytes % % Eosinophils % % Basophils % % Neutrophils # (1.3-7.7) k/uL Lymphocytes # (1.0-4.8) k/uL Monocytes # (0-1.0) k/uL Eosinophils # (0-0.7) k/uL Basophils # (0-0.2) k/uL Sodium (137-145) mmol/L Potassium (3.5-5.1) mmol/L Chloride (98-107) mmol/L Carbon Dioxide (22-30) mmol/L Anion Gap mmol/L BUN (9-20) mg/dL Creatinine (0.66-1.25) mg/dL Est GFR (CKD-EPI)AfAm (>60 ml/min/1.73 sqM) Est GFR (CKD-EPI)NonAf (>60 ml/min/1.73 sqM) Glucose (74-99) mg/dL Plasma Lactic Acid Berry (0.7-2.0) mmol/L Calcium (8.4-10.2) mg/dL Total Bilirubin (0.2-1.3) mg/dL AST (17-59) U/L ALT (4-49) U/L Alkaline Phosphatase (38-126) U/L Troponin I <0.012 (0.000-0.034) ng/mL Total Protein (6.3-8.2) g/dL Albumin (3.5-5.0) g/dL Urine Color Colorless Urine Appearance Clear (Clear) Urine pH 5.5 (5.0-8.0) Ur Specific [place] 1.005 (1.001-1.035) Urine Protein Negative (Negative) Urine Glucose (UA) 4+ H (Negative) Urine Ketones Trace H (Negative) Urine Blood Small H (Negative) Urine Nitrite Negative (Negative) Urine Bilirubin Negative (Negative) Urine Urobilinogen <2.0 (<2.0) mg/dL Ur Leukocyte Esterase Negative (Negative) Urine RBC 1 (0-5) /hpf Influenza Type A (PCR) Not Detected (Not Detectd) Influenza Type B (PCR) Not Detected (Not Detectd) RSV (PCR) Not Detected (Not Detectd) SARS-CoV-2 (PCR) Not Detected (Not Detectd) Disposition Clinical Impression: Hypertension Disposition: HOME SELF-CARE Condition: Good Instructions (If sedation given, give patient instructions): Hypertension (ED), Dizziness (ED) Additional Instructions: Follow-up with PCP. Report back to ER with any new or worsening symptoms. Keep a blood pressure diary with measurements taken at the same time each day. Is patient prescribed a controlled substance at d/c from ED?: No Referrals: Ryan Lewis MD [Primary Care Provider] - 1-2 days Time of Disposition: 23:47
[2023-07-19 22:10] LABS: ALT 214 U/L (4-49); AST 116 U/L (17-59); African American GFR (CKD) >90 (>60 ml/min/1.73 sqM); Alkaline Phosphatase 95 U/L (38-126); Anion Gap 14 mmol/L; Blood Urea Nitrogen 29 mg/dL (9-20); Calcium 9.8 mg/dL (8.4-10.2); Carbon Dioxide 22 mmol/L (22-30); Chloride 102 mmol/L (98-107); Glucose 115 mg/dL (74-99); Non-African American GFR(CKD) 83 (>60 ml/min/1.73 sqM); Potassium 4.4 mmol/L (3.5-5.1); Sodium 138 mmol/L (137-145); Total Bilirubin 0.8 mg/dL (0.2-1.3); Total Protein 7.8 g/dL (6.3-8.2)
--- NOTE | 2023-07-19 22:26 | XR ---
EXAMINATION TYPE: XR chest 2V DATE OF EXAM: 07/19/2023 9:47 PM CLINICAL INDICATION:Male, 77 years old with history of dizzy, HTN; PHH COMPARISON: Chest radiographs from 11/24/2022 TECHNIQUE: XR chest 2V Frontal and lateral views of the chest. FINDINGS: Lungs/Pleura: There is no evidence of pleural effusion, focal consolidation, or pneumothorax. Pulmonary vascularity: Unremarkable. Heart/mediastinum: Cardiomediastinal silhouette is unremarkable. Musculoskeletal: No acute osseous pathology. IMPRESSION: 1. No acute cardiopulmonary disease process. 2. COPD changes.
[2023-07-19 22:38] LABS: Appearance,Urine Clear (Clear); Bilirubin,Urine Negative (Negative); Blood,Urine Small (Negative); Color,Urine Colorless; Glucose,Urine (UA) 4+ (Negative); Ketones,Urine Trace (Negative); Leukocyte Esterase,Urine Negative (Negative); Nitrite,Urine Negative (Negative); PH, Urine 5.5 (5.0-8.0); Protein,Urine Negative (Negative); RBC,Urine 1 /hpf (0-5); Specific Gravity,Urine 1.005 (1.001-1.035); Urobilinogen,Urine <2.0 mg/dL (<2.0)
[2023-07-19 23:22] VITALS: BP 161/76; PULSE 64
== END 2023-07-20 00:13 | disposition home or self-care (01) ==
LOC: EC 20:37
DX: I10 Essential (primary) hypertension (principal); I48.91 Unspecified atrial fibrillation; I25.10 Atherosclerotic heart disease of native coronary artery without angina pectoris; I45.10 Unspecified right bundle-branch block; Z87.891 Personal history of nicotine dependence; Z88.2 Allergy status to sulfonamides; Z88.1 Allergy status to other antibiotic agents; Z88.8 Allergy status to other drugs, medicaments and biological substances; Z79.01 Long term (current) use of anticoagulants; Z79.899 Other long term (current) drug therapy
CPT/HCPCS: 36415; 71046; 80053; 81001; 83605; 84484; 85025; 87636; 93005; 99284

== ENCOUNTER → 2023-11-01 | Outpatient (CLI) | payer MEDICARE, OTHER ==
--- NOTE | 2023-11-01 23:13 | MR ---
EXAMINATION TYPE: MR shoulder LT wo con DATE OF EXAM: 11/01/2023 COMPARISON: No radiographic correlation available HISTORY: 77-year-old male Left shoulder pain for 2 weeks. TECHNIQUE: Multiplanar, multisequence imaging of the left shoulder is performed without contrast. FINDINGS: There is a very large heterogeneous collection measuring up to 15.2 cm long by 3.5 cm thick by 5.9 cm craniocaudal. This extends along the fascial plane between the subscapularis muscle and de ltoid muscle with corresponding mass effect. Contiguous moderate subacromial/subdeltoid bursal effusion. Moderate to large glenohumeral joint effusion. Degenerative and blunted superior labrum. The glenohum eral joint itself appears intact. There is severe thinning of the supraspinatus tendon possibly with low signal intensity tear measurin g 2.2 x 2.2 cm. There is edematous change extending into its muscle belly but without any significant atrophy. The subscapularis tendon is intact. Split tears of the long head biceps tendon along the bicipital groove. The intracapsular portion is n ot well seen and may be torn. Moderate degenerative change at the AC joint with joint effusion and reactive subchondral cystic ramsay ge. Muscular edema along the deltoid and triceps musculature. IMPRESSION: 1. A very large, complex collection with internal hemorrhagic material located along the fascial plan e, interposed between the subscapularis muscle and posterior deltoid with corresponding mass effect. This measures up to 15.2 x 2.5 x 5.9 cm and is favored to represent a large hematoma rather than a he morrhagic mass. Further clinical correlation and orthopedic evaluation is recommended. Query any hist ory of injury and blood thinner use. Ultrasound can be considered to assess for any internal vascular ity. Contrast-enhanced MRI can also assess for any solid enhancing components. 2. High-grade tear of the supraspinatus tendon measuring 2.2 x 2.2 cm. Reactive edema extending into its muscle belly. 3. Split tears of the extracapsular long head biceps tendon along the bicipital groove. The intracaps ular portion is not seen and may be torn. 4. Moderate to large glenohumeral joint effusion with a degenerative and blunted superior labrum. The joint itself appears intact. 5. Edema within the deltoid and triceps may be reactive or could represent muscle strains.
== END | disposition home or self-care (01) ==
LOC: RADMRIMAIN 21:15
PROVIDERS: ATTEND Internal Medicine
DX: M19.012 Primary osteoarthritis, left shoulder (principal); R22.32 Localized swelling, mass and lump, left upper limb

== ENCOUNTER → 2024-02-20 | Outpatient (CLI) | payer MEDICARE, OTHER ==
--- NOTE | 2024-02-20 13:01 | XR ---
EXAMINATION TYPE: XR chest 2V DATE OF EXAM: 02/20/2024 12:52 PM COMPARISON: Chest radiographs from 07/19/2023 TECHNIQUE: XR chest 2V Frontal and lateral views of the chest. CLINICAL INDICATION:Male, 78 years old with history of C64.2 MALIGNANT NEOPLASM OF LEFT KIDNEY, EXCEP T RE; FINDINGS: Lungs/Pleura: There is flattening of the diaphragm with increased lucency of the lungs. No evidence o f pneumothorax, pleural effusion or focal consolidation. Pulmonary vascularity: Unremarkable. Heart/mediastinum: Cardiomediastinal silhouette is unremarkable. Atherosclerotic calcifications are seen in the aorta. Musculoskeletal: No acute osseous pathology. Other: Surgical clips within the right upper quadrant. IMPRESSION: 1. No acute cardiopulmonary disease process. 2. COPD changes. [facility], , 02/20/2024 12:58 PM
== END | disposition home or self-care (01) ==
LOC: RADXRMAIN 12:17
PROVIDERS: ATTEND Urology
CPT/HCPCS: 71046